=== PATIENT | male | born 1990 | race Caucasian/White ===

== ENCOUNTER 2022-02-07 20:10 | Emergency (ER) | payer BC ==
[2022-02-07 20:39] VITALS: RESP 18; TEMP 97.9; BMI 30.7
[2022-02-07] MEDS ORDERED: KETOROLAC TROMETHAMINE 30 MG/1 ML VIAL IVPUSH ONE (23:31)
[2022-02-07] MEDS ORDERED: KETOROLAC TROMETHAMINE 30 MG/1 ML VIAL ONE (23:34)
[2022-02-08 00:09] VITALS: BP 128/78; PULSE 68
== END 2022-02-08 00:09 | disposition home or self-care (01) ==
LOC: FER 20:10
PROC: 3E0333Z Introduction of Anti-inflammatory into Peripheral Vein, Percutaneous Approach (ICD-10-PCS; principal; 2022-02-07)
DX: R07.89 Other chest pain (principal)
CPT/HCPCS: 36415; 82550; 82553; 84484; 93005; 93010; 99284-25